=== PATIENT | female | born 1940 | race Caucasian/White ===

== ENCOUNTER 2024-09-27 07:21 | Outpatient (REF) | payer OTHER, SELFPAY | END 2024-09-27 07:22 | disposition home or self-care (01) | LOC: HO.HOSX 07:21 | PROVIDERS: Visit Provider Physician Assistant | DX: Z13.89 Encounter for screening for other disorder (principal) ==

== ENCOUNTER 2024-09-30 09:50 | Outpatient (REF) | payer OTHER, SELFPAY ==
--- NOTE | ~2024-09-30 | XR_ITS ---
EXAMINATION: XR ANKLE, RIGHT CLINICAL INFORMATION: M25.571 - Pain in right ankle and joints of right foot COMPARISON: None available. TECHNIQUE: AP, lateral, and mortise views of the right ankle. FINDINGS: Splinting material present, obscuring fine bony detail. There is osteopenia, likely disuse. There has been lateral plate and screw fixation of distal fibular diaphyseal fracture . There are 2 syndesmotic stabilization screws. In addition there are 2 screws transfixing the medial malleolus. Hardware appears intact, well seated, without evidence of loosening or complication. Fracture lines are still visible although slightly sclerotic indicating likely healing. Mild persistent soft tissue swelling. XR/XR ankle RT min 3V IMPRESSION: Extensive ORIF of fibular and medial malleolar fractures without complication evident. Electronically signed by: Tc Rodriguez MD 09/30/2024 10:44 AM EDT
== END 2024-09-30 09:51 | disposition home or self-care (01) ==
LOC: HO.HOSX 09:50
PROVIDERS: Visit Provider Physician Assistant
DX: S82.891A Other fracture of right lower leg, initial encounter for closed fracture (principal); V89.2XXA Person injured in unspecified motor-vehicle accident, traffic, initial encounter; Y93.9 Activity, unspecified; Y92.9 Unspecified place or not applicable; Y99.9 Unspecified external cause status
CPT/HCPCS: 29405; 73610

== ENCOUNTER 2024-09-30 09:50 | Outpatient (AMB) | payer OTHER, SELFPAY ==
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
[2024-09-30 10:20] VITALS: BMI 41.1
== END 2024-09-30 11:33 | disposition home or self-care (01) ==
LOC: HO.HOS 09:50
PROVIDERS: Visit Provider Physician Assistant
DX: S82.891A Other fracture of right lower leg, initial encounter for closed fracture (principal)
CPT/HCPCS: 29405; 99204

== ENCOUNTER → 2024-09-30 09:52 | Outpatient (BNV) | payer OTHER, SELFPAY | PROVIDERS: Visit Provider Radiology Diagnostic Radiology | DX: S82.841A Displaced bimalleolar fracture of right lower leg, initial encounter for closed fracture (principal); S82.51XA Displaced fracture of medial malleolus of right tibia, initial encounter for closed fracture; S82.61XA Displaced fracture of lateral malleolus of right fibula, initial encounter for closed fracture | CPT/HCPCS: 73610 ==

== ENCOUNTER 2024-10-14 11:06 | Outpatient (REF) | payer OTHER, SELFPAY | END 2024-10-14 11:07 | disposition home or self-care (01) | LOC: HO.HOSX 11:06 | PROVIDERS: Visit Provider Physician Assistant | DX: Z13.89 Encounter for screening for other disorder (principal) ==

== ENCOUNTER 2024-10-15 08:30 | Outpatient (REF) | payer OTHER, SELFPAY ==
--- NOTE | ~2024-10-15 | XR_ITS ---
EXAMINATION: XR ANKLE 3 OR MORE VIEWS RIGHT HISTORY: M25.571 - Pain in right ankle and joints of right foot COMPARISON: Comparison is made with the prior examination dated 09/30/2024. FINDINGS: Three views of the right ankle are submitted. The bones are osteopenic. The patient is again noted to be status post internal fixation of the medial malleolus with 2 screws and the distal fibula with a sideplate and multiple orthopedic screws. Two syndesmotic screws are again noted. The distal fibular fracture line remains visible. The medial malleolar fracture line is less well visualized, consistent with healing. The joint spaces are preserved. The soft tissues are unremarkable. XR/XR ankle RT min 3V IMPRESSION: Distal fibular fracture without significant change. Healing medial malleolar fracture. Electronically signed by: Ezequiel Brown MD 10/15/2024 10:53 AM EDT
== END 2024-10-15 08:31 | disposition home or self-care (01) ==
LOC: HO.HOSX 08:30
PROVIDERS: Visit Provider Physician Assistant
DX: S82.891A Other fracture of right lower leg, initial encounter for closed fracture (principal); M25.571 Pain in right ankle and joints of right foot
CPT/HCPCS: 73610

== ENCOUNTER 2024-10-15 10:09 | Outpatient (AMB) | payer OTHER, SELFPAY ==
[2024-10-15 10:42] VITALS: BMI 41.1
--- NOTE | 2024-10-15 10:42 | MHC.OFFVIS ---
Vital Signs 10/15/24 10:42 Height 5 ft 2 in Weight 225 lb BMI 41.1 Intake Visit Reasons: PO-2wk f/u Rt ankle ORIF 08/26/24-cast off w xrays Intake Note: Renata is an 84 year old female who presents today for a follow up status post right lower extremity Fibular/malleolus Fractue, status post distal fibular internal fixation, DOS: 08/26/24. At her last visit she was placed in a short leg cast, instructed to follow up in 2 weeks. Cast removed and xrays updated. Patient reports shes doing well, she states no concerns today. Allergies morphine Allergy (Verified 10/15/24 10:54) Unknown HPI HPI PO-2wk f/u Rt ankle ORIF 08/26/24-cast off w xrays: Details: 84-year-old female returns to the office today status post ORIF right ankle on 08/26/2024 in [place]. She is remain nonweightbearing with the cast. She has been doing well and has no concerns today. [facility] Medical History (Updated 10/11/24 @ 14:57 by Christina Mosher PA-C) Closed displaced fracture of medial malleolus of right tibia Traumatic closed nondisplaced fracture of shaft of left fibula Closed fracture of transverse process of thoracic vertebra Closed fracture of one rib of left side Hypertension Surgical History H/O surgical procedure History of hip surgery Social History (Updated 10/11/24 @ 14:16 by Linda Kennedy) Current occupational status: retired Review of Systems Const All systems reviewed & are unremarkable except as noted in HPI and below Physical Exam Vital Signs: BMI result Body Mass Index 41.1 Extrem Other: Right ankle incision is clean dry and intact. No redness or swelling. Neurovascularly intact. Results Reviewed Results Reviewed: X-rays of the right ankle obtained in the office today reviewed by me show intact orthopedic hardware with interval healing. Assessment & Plan Assessment & Plan (1) Closed right ankle fracture: Code(s): S82.891A - Other fracture of right lower leg, initial encounter for closed fracture Category: Medical Plan: Images were reviewed with Dr. Kwok today in the decision was made to allow her to begin weight-bearing 20-25% in a boot at all times with a walker. I relayed this to the patient and her sister in the office today. I stressed the importance of only doing 20-25% weight-bearing to reduce the risk of hardware failure. She will work with physical therapy and occupational therapy for gait training, ADLs, upper body conditioning, range of motion and stretching exercises. She can remove the boot for resting, hygiene and physical therapy exercises. She will see us back in 5 weeks for repeat x-rays and to potentially plan removal of syndesmotic screws. The patient is content with this plan she was fit for a tall boot in the office today and will see me back in 5 weeks with x-rays, sooner if needed. Orders: Orders XR ankle RT min 3V Today M25.571 - Pain in right ankle and joints of right foot Coding Level of Care Code Global (37541) Diagnoses Closed right ankle fracture S82.891A
== END 2024-10-15 11:42 | disposition home or self-care (01) ==
LOC: HO.HOS 10:11
PROVIDERS: Visit Provider Physician Assistant
DX: S82.891A Other fracture of right lower leg, initial encounter for closed fracture (principal)
CPT/HCPCS: 99213

== ENCOUNTER → 2024-10-15 10:25 | Outpatient (BNV) | payer OTHER, SELFPAY | PROVIDERS: Visit Provider Radiology Diagnostic Radiology | DX: M25.571 Pain in right ankle and joints of right foot (principal) | CPT/HCPCS: 73610 ==

== ENCOUNTER 2024-10-20 07:23 | Outpatient (REF) | payer OTHER, SELFPAY ==
[2024-10-20 07:31] LABS: MANUAL DIFF FLAG NO
[2024-10-20 07:42] LABS: Hematocrit 37.5 % (37.0-47.0); Hemoglobin 12.8 g/dl (12.0-16.0); Imm Gran Abs Auto 0.01 X10*3/uL (0.00-0.03); Imm Gran Pct Auto 0.2 % (0.0-0.4); Lymphocytes Absolute Auto 1.2 X10*3/uL (1.2-4.9); Mean Corpuscular HGB Conc 34.1 g/dl (31.0-35.0); Mean Corpuscular Hemoglobin 33.2 pg (27.0-33.0); Mean Corpuscular Volume 97.4 fL (80.0-98.0); NRBC Abs Auto 0.000 X10*3/uL (0.0-0.012); NRBC Pct Auto 0.0 /100WBC (0.0-0.2); Platelet Count 210 X10*3/uL (160-400); Red Blood Count 3.85 X10*6/uL (4.20-5.50); White Blood Count 4.8 X10*3/uL (4.8-10.8)
[2024-10-20 07:59] LABS: Alanine Aminotransferase 25 U/L (0-31); Albumin Level 3.8 g/dL (3.5-5.0); Alkaline Phosphatase 81 U/L (39-117); Anion Gap 13 (12-20); Aspartate Amino Transferase 21 U/L (5-31); Blood Urea Nitrogen 12 mg/dL (9-16); Calcium 9.2 mg/dL (8.4-10.2); Carbon Dioxide 25 mmol/L (22-29); Chloride 111 mmol/L (96-108); Estimated Glomerular Filt Rate > 60; Potassium 4.1 mmol/L (3.3-5.1); Sodium 145 mmol/L (135-145); Total Protein 5.9 g/dL (6.5-8.0)
== END 2024-10-20 07:24 | disposition home or self-care (01) ==
LOC: HO.MMNH1L 07:23
PROVIDERS: Visit Provider Student in an Organized Health Care Education/Training Program
DX: S22.32XD Fracture of one rib, left side, subsequent encounter for fracture with routine healing (principal); S22.009D Unspecified fracture of unspecified thoracic vertebra, subsequent encounter for fracture with routine healing; S82.401D Unspecified fracture of shaft of right fibula, subsequent encounter for closed fracture with routine healing
CPT/HCPCS: 36415; 80053; 85025

== ENCOUNTER 2024-11-01 06:33 | Outpatient (REF) | payer MEDICARE, OTHER, SELFPAY ==
[2024-11-01 06:37] LABS: MANUAL DIFF FLAG NO
[2024-11-01 07:17] LABS: Hematocrit 37.3 % (37.0-47.0); Hemoglobin 12.9 g/dl (12.0-16.0); Imm Gran Abs Auto 0.01 X10*3/uL (0.00-0.03); Imm Gran Pct Auto 0.2 % (0.0-0.4); Lymphocytes Absolute Auto 1.7 X10*3/uL (1.2-4.9); Mean Corpuscular HGB Conc 34.6 g/dl (31.0-35.0); Mean Corpuscular Hemoglobin 33.2 pg (27.0-33.0); Mean Corpuscular Volume 96.1 fL (80.0-98.0); NRBC Abs Auto 0.000 X10*3/uL (0.0-0.012); NRBC Pct Auto 0.0 /100WBC (0.0-0.2); Platelet Count 247 X10*3/uL (160-400); Red Blood Count 3.88 X10*6/uL (4.20-5.50); White Blood Count 4.6 X10*3/uL (4.8-10.8)
[2024-11-01 07:40] LABS: Anion Gap 11 (12-20); Blood Urea Nitrogen 9 mg/dL (9-16); Calcium 9.1 mg/dL (8.4-10.2); Carbon Dioxide 25 mmol/L (22-29); Chloride 110 mmol/L (96-108); Estimated Glomerular Filt Rate > 60; Potassium 3.2 mmol/L (3.3-5.1); Sodium 143 mmol/L (135-145)
== END 2024-11-01 06:34 | disposition home or self-care (01) ==
LOC: HO.MMNH1L 06:33
PROVIDERS: Visit Provider Student in an Organized Health Care Education/Training Program
DX: S22.009D Unspecified fracture of unspecified thoracic vertebra, subsequent encounter for fracture with routine healing (principal); S22.32XD Fracture of one rib, left side, subsequent encounter for fracture with routine healing
CPT/HCPCS: 36415; 80048; 85025

== ENCOUNTER 2024-11-09 15:14 | Outpatient (REF) | payer MEDICARE, OTHER, SELFPAY ==
[2024-11-10 08:38] LABS: Chlamydia pneumoniae PCR Not Detected (Not Detect.); Coronavirus 229E PCR Not Detected (Not Detect.); Coronavirus HKU1 PCR Not Detected (Not Detect.); Coronavirus NL63 PCR Not Detected (Not Detect.); Coronavirus OC43 PCR Not Detected (Not Detect.); RSV PCR Not Detected (Not Detect.); Rhino/Enterovirus PCR Detected (Not Detect.)
[2024-11-10 08:50] LABS: Influenza A H1 PCR Not Detected (Not Detect.); Influenza A H1-2009 PCR Not Detected (Not Detect.); Influenza A H3 PCR Not Detected (Not Detect.); SARS-CoV-2 PCR Not Detected (Not Detect.)
== END 2024-11-09 15:15 | disposition home or self-care (01) ==
LOC: HO.MMNH1L 15:14
PROVIDERS: Visit Provider Physician Assistant Medical
DX: S22.009D Unspecified fracture of unspecified thoracic vertebra, subsequent encounter for fracture with routine healing (principal); E66.01 Morbid (severe) obesity due to excess calories
CPT/HCPCS: 87633

== ENCOUNTER 2024-11-18 08:18 | Outpatient (REF) | payer MEDICARE, OTHER, SELFPAY ==
--- NOTE | ~2024-11-18 | XR_ITS ---
EXAMINATION: XR ANKLE, RIGHT CLINICAL INFORMATION: M25.571 - Pain in right ankle and joints of right foot COMPARISON: 10/15/2024, 09/30/2024. TECHNIQUE: AP, lateral, and mortise views of the right ankle. FINDINGS: Splinting material present, obscuring fine bony detail. There is disuse osteopenia. There has been lateral plate and screw fixation of distal fibular diaphyseal fracture . There are 2 syndesmotic stabilization screws. In addition there are 2 screws transfixing the medial malleoli are fractured, with fracture lines becoming less distinct and more sclerotic. Hardware appears intact, well seated, without evidence of loosening or complication. Mild persistent soft tissue swelling. XR/XR ankle RT min 3V IMPRESSION: Extensive ORIF of fibular and medial malleolar fractures. Stable alignment. No hardware complication. Evidence of continued healing. Electronically signed by: Tc Rodriguez MD 11/18/2024 11:36 AM EDT
== END 2024-11-18 08:19 | disposition home or self-care (01) ==
LOC: HO.HOSX 08:18
PROVIDERS: Visit Provider Physician Assistant
DX: S82.891A Other fracture of right lower leg, initial encounter for closed fracture (principal); M25.571 Pain in right ankle and joints of right foot; X58.XXXA Exposure to other specified factors, initial encounter
CPT/HCPCS: 73610

== ENCOUNTER 2024-11-18 10:53 | Outpatient (AMB) | payer OTHER, SELFPAY ==
--- NOTE | 2024-11-18 11:18 | A.OFFVIS_ITS ---
Intake Visit Reasons: PO-Rt ankle ORIF 08/26/24 Intake Note: Renata is a 84 year old woman who presents today post operatively status post ORIF of right ankle DOS: 08/26/2024 in [facility] in [place], [place] by Daniel Pfeiffer M.D. At her last visit she was advised she can begin weight bearing 20-25% in a tall boot at all times with a walker. Patient reports that she is doing well, states when she performs toe stretches she feels pressure. Allergies morphine Allergy (Verified 11/18/24 11:23) Unknown HPI HPI PO-Rt ankle ORIF 08/26/24: Details: 84-year-old female returns to the office today status post ORIF on 08/26/2024 from a provider in [place]. She has been weight-bearing 25% and a boot. She has been working with physical therapy and trying to progress with her activity levels. [facility] Medical History (Updated 10/11/24 @ 14:57 by hCristina Mosher PA-C) Closed displaced fracture of medial malleolus of right tibia Traumatic closed nondisplaced fracture of shaft of left fibula Closed fracture of transverse process of thoracic vertebra Closed fracture of one rib of left side Hypertension Surgical History H/O surgical procedure History of hip surgery Social History (Updated 10/11/24 @ 14:16 by Linda Kennedy) Current occupational status: retired Review of Systems Const All systems reviewed & are unremarkable except as noted in HPI and below Physical Exam Extrem Other: Right ankle incision is clean dry and intact. No redness or swelling. Neurovascularly intact. Results Reviewed Results Reviewed: X-rays of the right ankle obtained in the office today reviewed by me show intact orthopedic hardware with interval healing. Assessment & Plan Assessment & Plan (1) Closed right ankle fracture: Code(s): S82.891A - Other fracture of right lower leg, initial encounter for closed fracture Category: Medical Plan: Images were reviewed with Dr. Kwok today to determine roughly when the syndesmosis screws would be removed if necessary. At this time given her bone quality it is best to leave the screws in 4 likely another 8 weeks and allow her to progress weight-bearing to help strengthen the bone. I did explain the screws could break but if that did happen he would not harm the bone. At this time the joint has not collapsed and she had continues to do well. She will see us back in 8 weeks with x-rays, sooner if needed. Orders: Orders XR ankle RT min 3V Today M25.571 - Pain in right ankle and joints of right foot Coding Level of Care Code Est Pt Level 3 (99606) Complex EM visit Add On G2211 Diagnoses Closed right ankle fracture S82.894M
== END 2024-11-18 12:11 | disposition home or self-care (01) ==
PROVIDERS: Visit Provider Physician Assistant
DX: S82.891A Other fracture of right lower leg, initial encounter for closed fracture (principal)
CPT/HCPCS: 99213; G2211

== ENCOUNTER → 2024-11-18 11:05 | Outpatient (BNV) | payer MEDICARE, OTHER, SELFPAY | PROVIDERS: Visit Provider Radiology Diagnostic Radiology | DX: M25.571 Pain in right ankle and joints of right foot (principal) | CPT/HCPCS: 73610 ==

== ENCOUNTER 2024-12-08 06:55 | Outpatient (REF) | payer OTHER, MEDICARE, SELFPAY ==
[2024-12-08 06:58] LABS: MANUAL DIFF FLAG NO
[2024-12-08 07:23] LABS: Hematocrit 36.4 % (37.0-47.0); Hemoglobin 12.8 g/dl (12.0-16.0); Imm Gran Abs Auto 0.01 X10*3/uL (0.00-0.03); Imm Gran Pct Auto 0.2 % (0.0-0.4); Lymphocytes Absolute Auto 1.6 X10*3/uL (1.2-4.9); Mean Corpuscular HGB Conc 35.2 g/dl (31.0-35.0); Mean Corpuscular Hemoglobin 32.4 pg (27.0-33.0); Mean Corpuscular Volume 92.2 fL (80.0-98.0); NRBC Abs Auto 0.000 X10*3/uL (0.0-0.012); NRBC Pct Auto 0.0 /100WBC (0.0-0.2); Platelet Count 210 X10*3/uL (160-400); Red Blood Count 3.95 X10*6/uL (4.20-5.50); White Blood Count 4.5 X10*3/uL (4.8-10.8)
[2024-12-08 07:55] LABS: Anion Gap 9 (12-20); Blood Urea Nitrogen 10 mg/dL (9-16); Calcium 9.0 mg/dL (8.4-10.2); Carbon Dioxide 26 mmol/L (22-29); Chloride 111 mmol/L (96-108); Estimated Glomerular Filt Rate > 60; Potassium 3.2 mmol/L (3.3-5.1); Sodium 143 mmol/L (135-145)
== END 2024-12-08 06:56 | disposition home or self-care (01) ==
LOC: HO.MMNH1L 06:55
DX: S22.009D Unspecified fracture of unspecified thoracic vertebra, subsequent encounter for fracture with routine healing (principal)
CPT/HCPCS: 36415; 80048; 85025

== ENCOUNTER 2025-01-13 08:21 | Outpatient (REF) | payer OTHER, MEDICARE, SELFPAY | END 2025-01-13 08:22 | disposition home or self-care (01) | LOC: HO.HOSX 08:21 | PROVIDERS: Visit Provider Physician Assistant | DX: Z13.89 Encounter for screening for other disorder (principal) ==